=== PATIENT | female | born 1980 | race Caucasian/White ===

== ENCOUNTER 2022-12-08 08:44 | Emergency (ER) | payer MEDICARE ==
[~2022-12-08] VITALS: Ht 177.8 cm; Wt 63.0 kg
[2022-12-08 09:27] LABS: BASOPHILS # (AUTO) 0.1 X10'3 (0-0.2); BASOPHILS % (AUTO) 0.5 % (0-1); EOSINOPHILS % (AUTO) 0 % (0-6); HEMATOCRIT 38.3 % (35.0-45.0); HEMOGLOBIN 13.1 g/dl (12.0-16.0); LYMPHOCYTES % (AUTO) 8.7 % (21-51); MEAN CORPUSCULAR HEMOGLOBIN 31.6 PG (27.0-31.0); MEAN CORPUSCULAR HGB CONC 34.1 g/dL (33.0-36.5); MEAN CORPUSCULAR VOLUME 92.7 FL (78-98); MONOCYTES # (AUTO) 0.8 X10'3 (0-0.9); MONOCYTES % (AUTO) 6.8 % (2-12); NEUTROPHILS # (AUTO) 9.6 X10'3 (1.8-7.7); PLATELET COUNT 264 X10'3 (140-440); RED BLOOD COUNT 4.13 X10'6 (4.20-5.60); RED CELL DISTRIBUTION WIDTH 12.9 % (11.5-14.5); WHITE BLOOD COUNT 11.5 X10'3 (4.5-11.0)
[2022-12-08 09:42] LABS: ALANINE AMINOTRANSFERASE 25 U/L (12-78); ALBUMIN 4.4 G/DL (3.4-5.0); ALBUMIN/GLOBULIN RATIO 1.5 (1.1-1.5); ALKALINE PHOSPHATASE 57 IU/L (46-116); ANION GAP 12 (8-16); ASPARTATE AMINO TRANSFERASE 19 U/L (10-37); BILIRUBIN,TOTAL 1.2 MG/DL (0.1-1.0); BLOOD UREA NITROGEN 12 MG/DL (7-18); CALCIUM 9.4 MG/DL (8.5-10.1); CHLORIDE 102 MMOL/L (99-107); CREATININE 0.75 MG/DL (0.40-0.90); GLUCOSE 132 MG/DL (70-104); LIPASE 158 U/L (73-393); POTASSIUM 3.3 MMOL/L (3.5-5.1); SODIUM 136 MMOL/L (135-145); TOTAL CARBON DIOXIDE 22.3 MMOL/L (24-32); TOTAL PROTEIN 7.4 G/DL (6.4-8.2); eGFR 85 ML/MIN
[2022-12-08] MEDS ORDERED: normal saline 1000ML IV soln IVB ONE (10:05)
[2022-12-08] MEDS ORDERED: ondansetron/PF 4mg/2ml inj IV ONE (10:05)
[2022-12-08] MEDS ORDERED: dextrose 5%-normal saline 1,000 ML IV ONE (10:05)
[2022-12-08 11:35] LABS: URINE HCG POSITIVE (NEG)
[2022-12-08 11:47] LABS: CLARITY,URINE CLOUDY (Clear); COLOR,URINE YELLOW (Yellow); GLUCOSE, URINE NEGATIVE (Neg); KETONES,URINE >=80 mg/dl (Neg); LEUKOCYTE ESTERASE ,URINE NEGATIVE (Neg); NITRITES, URINE NEGATIVE (Neg); OCCULT BLOOD,URINE NEGATIVE (Neg); PH,URINE 6.5 (4.8-8.0); PROTEIN,URINE 100 mg/dl (Neg); UROBILINOGEN,URINE 0.2 E.U/dL (0.2-1.0)
[2022-12-08 12:00] LABS: UA COLLECTION TYPE CLN CATCH MIDSTREAM
[2022-12-08] MEDS ORDERED: LORazepam 2 mg/ml vial IV ONE (12:00)
[2022-12-08 12:01] LABS: MUCUS STRANDS MANY /LPF (Neg); SQUAMOUS EPITHELIAL CELL,UR MANY /LPF (FEW)
[2022-12-08 12:02] LABS: BACTERIA,URINE 2+ /HPF (Neg); RBC,URINE 0-2 /HPF (0-2); WBC,URINE 0-4 /HPF (0-4)
[2022-12-08] MEDS ORDERED: diphenhydrAMINE 50 mg/ml inj IV ONE (12:10)
--- NOTE | 2022-12-08 13:14 | NUR ---
Pt with nausea and CO dry heaves, reported to Dr. Haynes, received VO for Reglan 10mg IV x 1 now.
[2022-12-08] MEDS ORDERED: metoclopramide 5 mg/ml inj IV ONE (13:15)
[2022-12-08] MEDS ORDERED: PYRI25TA4 PO (14:25)
[2022-12-08] MEDS ORDERED: DOCO200C5 PO (14:25)
[2022-12-08] MEDS ORDERED: METO-292 PO (14:25)
[2022-12-08] MEDS ORDERED: DIPH25TA25 PO (14:25)
[2022-12-08] MEDS ORDERED: ONDA4TAB12 PO (14:25)
[2022-12-08 14:49] VITALS: BP 131/75
== END 2022-12-08 14:55 | disposition home or self-care (01) ==
LOC: ER 08:45
DX: O21.0 Mild hyperemesis gravidarum (principal); O26.891 Other specified pregnancy related conditions, first trimester; R10.84 Generalized abdominal pain; F41.9 Anxiety disorder, unspecified; F32.9 Major depressive disorder, single episode, unspecified; F12.90 Cannabis use, unspecified, uncomplicated; Z79.899 Other long term (current) drug therapy; Z3A.01 Less than 8 weeks gestation of pregnancy
CPT/HCPCS: 36415; 76801; 80053; 81001; 81025; 83690; 84702; 85025; 96361; 96374; 96375; 99285; J1200; J2405; J2765; J7030; J7042

== ENCOUNTER 2022-12-10 19:58 | Emergency (ER) | payer MEDICARE ==
[~2022-12-10] VITALS: Ht 177.8 cm; Wt 63.6 kg
[~2022-12-10 19:58] MED LIST: DIPH25TA25 PO; DOCO200C5 PO; METO-292 PO; ONDA4TAB12 PO; PYRI25TA4 PO
[2022-12-10] MEDS ORDERED: dextrose 5%-normal saline 1,000 ML IV ONE (22:15)
[2022-12-10] MEDS ORDERED: ondansetron/PF 4mg/2ml inj IV ONE (22:15)
[2022-12-10] MEDS ORDERED: normal saline 1000ML IV soln IVB ONE (22:15)
[2022-12-10 22:43] LABS: BASOPHILS % (AUTO) 0.5 % (0-1); EOSINOPHILS % (AUTO) 0.3 % (0-6); HEMATOCRIT 35.9 % (35.0-45.0); HEMOGLOBIN 12.5 g/dl (12.0-16.0); LYMPHOCYTES # (AUTO) 2.3 X10'3 (1.1-4.8); LYMPHOCYTES % (AUTO) 21.4 % (21-51); MEAN CORPUSCULAR HEMOGLOBIN 31.9 PG (27.0-31.0); MEAN CORPUSCULAR HGB CONC 34.8 g/dL (33.0-36.5); MEAN CORPUSCULAR VOLUME 91.8 FL (78-98); MONOCYTES # (AUTO) 1.2 X10'3 (0-0.9); MONOCYTES % (AUTO) 10.9 % (2-12); NEUTROPHILS # (AUTO) 7.1 X10'3 (1.8-7.7); NEUTROPHILS % (AUTO) 66.9 % (42-75); PLATELET COUNT 246 X10'3 (140-440); RED BLOOD COUNT 3.91 X10'6 (4.20-5.60); RED CELL DISTRIBUTION WIDTH 12.8 % (11.5-14.5); WHITE BLOOD COUNT 10.6 X10'3 (4.5-11.0)
--- NOTE | 2022-12-10 23:18 | NUR ---
us at bedside
[2022-12-10 23:21] LABS: ALANINE AMINOTRANSFERASE 28 U/L (12-78); ALBUMIN 4.2 G/DL (3.4-5.0); ALBUMIN/GLOBULIN RATIO 1.5 (1.1-1.5); ALKALINE PHOSPHATASE 50 IU/L (46-116); ANION GAP 11 (8-16); ASPARTATE AMINO TRANSFERASE 16 U/L (10-37); BLOOD UREA NITROGEN 8 MG/DL (7-18); BUN/CREATININE RATIO 13.8 (6.6-38.0); CALCIUM 9.2 MG/DL (8.5-10.1); CHLORIDE 102 MMOL/L (99-107); CREATININE 0.58 MG/DL (0.40-0.90); GLUCOSE 96 MG/DL (70-104); SODIUM 137 MMOL/L (135-145); TOTAL CARBON DIOXIDE 24.3 MMOL/L (24-32); eGFR > 90 ML/MIN
[2022-12-10 23:55] LABS: BETA HCG,QUANTITATIVE 80217 mIU/ml
[2022-12-11 00:10] LABS: POTASSIUM 2.8 MMOL/L (3.5-5.1)
[2022-12-11] MEDS ORDERED: potassium CL 10mEq/100ml bag 100 ML IV SCH (00:25)
[2022-12-11] MEDS ORDERED: magnesium 2GM in 50ml NS 50 ML IV ONE (00:25)
[2022-12-11] MEDS ORDERED: potassium Cl 20 mEq SR tablet PO ONE (00:25)
[2022-12-11 02:04] VITALS: BP 134/80
--- NOTE | 2022-12-11 02:51 | NUR ---
iv dc'd pt being discharged dressing applied
== END 2022-12-11 02:54 | disposition home or self-care (01) ==
LOC: ER 19:58
DX: O21.0 Mild hyperemesis gravidarum (principal); E87.6 Hypokalemia; F41.9 Anxiety disorder, unspecified; F32.A Depression, unspecified; F12.90 Cannabis use, unspecified, uncomplicated; Z3A.01 Less than 8 weeks gestation of pregnancy; Z98.890 Other specified postprocedural states; Z79.899 Other long term (current) drug therapy
CPT/HCPCS: 36415; 76801; 80053; 84702; 85025; 96361; 96365; 96368; 96375; 99284; J2405; J3475; J3480; J7030; J7042